=== PATIENT | female | born 1980 | race Asian ===

== ENCOUNTER 2018-07-22 16:37 | Observation (INO) | payer OTHER ==
[~2018-07-22] VITALS: Ht 152.4 cm; Wt 56.0 kg
[~2018-07-22 16:37] MED LIST: DIPHENHYDRAMINE 50 MG/ML, 1ML ONE; ONDANSETRON 2MG/ML, 2ML IVPush PRN
[2018-07-22] MEDS ORDERED: HYDROmorphone 2 MG/ML, 1ML ONE ×3 (17:10→22:20)
[2018-07-22] MEDS ORDERED: HYDROmorphone 1 MG/ML, 1ML IVPush PRN (17:30)
[2018-07-22] MEDS ORDERED: FENTANYL PF 100 MCG/2ML ONE ×2 (19:15→21:35)
[2018-07-22] MEDS ORDERED: MIDAZOLAM 1 MG/ML, 2ML ONE (19:15)
[2018-07-22] MEDS ORDERED: ROPIvacaine/PF 0.5%, 30 ML ONE (19:15)
[2018-07-22] MEDS ORDERED: PROMETHAZINE 25 MG/ML, 1ML IV PRN (19:30)
[2018-07-22] MEDS ORDERED: hydrALAzine 20 MG/ML, 1ML IV PRN (19:30)
[2018-07-22] MEDS ORDERED: MEPERIDINE/PF 25MG/0.5ML IVPush PRN (19:30)
[2018-07-22] MEDS ORDERED: HALOPERIDOL 5 MG/ML IV PRN (19:30)
[2018-07-22] MEDS ORDERED: OXYcodone 5 MG/5 ML ORAL.SOL UDC PO PRN (19:30)
[2018-07-22] MEDS ORDERED: ACETAMINOPHEN 325 MG TABLET PO PRN (19:30)
[2018-07-22] MEDS ORDERED: DEXAMETHASONE 4 MG/ML, 1ML ONE (20:13)
[2018-07-22] MEDS ORDERED: CEFAZOLIN 1,000 MG ONE (20:13)
[2018-07-22] MEDS ORDERED: LIDOCAINE 2% 100MG/5ML SYRINGE ONE (20:13)
[2018-07-22] MEDS ORDERED: PROPOFOL 10 MG/ML, 20ML ONE (20:13)
[2018-07-22] MEDS ORDERED: KETOROLAC 30 MG/1 ML ONE (21:16)
[2018-07-22] MEDS ORDERED: OXYcodone 5 MG/5 ML ORAL.SOL UDC ONE (21:35)
[2018-07-22] MEDS ORDERED: ACETAMINOPHEN 650 MG/20.3 ML UDC ONE (21:35)
[2018-07-22] MEDS: FENTANYL PF 100 MCG/2ML IV PRN ×3 (21:48→22:06)
[2018-07-22] MEDS ORDERED: LABETALOL 5MG/ML, 20ML ONE (21:50)
[2018-07-22] MEDS: LABETALOL 5MG/ML, 20ML IV PRN ×3 (21:54→22:56)
[2018-07-22] MEDS ORDERED: hydrALAzine 20 MG/ML, 1ML ONE (22:07)
[2018-07-22] MEDS: HYDROmorphone 1 MG/ML, 1ML IV PRN ×4 (22:22→22:47)
[2018-07-22] MEDS ORDERED: OXYC-307 PO (23:26)
[2018-07-22] MEDS ORDERED: DOCU-131 PO (23:27)
[2018-07-22] MEDS ORDERED: ONDA4TAB7 PO (23:27)
[2018-07-23] MEDS: MORPHINE SULFATE 4 MG/ML, 1ML IVPush PRN ×2 (02:58→03:28)
[2018-07-23] MEDS: OXYcodone/APAP 5/325MG TABLET PO PRN ×3 (03:29→11:59)
[2018-07-23 04:00] VITALS: BP 134/92
[2018-07-23] MEDS ORDERED: KETOROLAC 30 MG/1 ML IVPush PRN (06:30)
[2018-07-23 07:08] VITALS: BP 124/89
== END 2018-07-23 12:05 | disposition home or self-care (01) ==
LOC: ED 18:15 → EDIP 18:31 → 4NOR 23:13
PROVIDERS: ADMIT Orthopaedic Surgery; ATTEND Orthopaedic Surgery
DX: S52.301A Unspecified fracture of shaft of right radius, initial encounter for closed fracture (principal); S52.201A Unspecified fracture of shaft of right ulna, initial encounter for closed fracture; W19.XXXA Unspecified fall, initial encounter; Y93.89 Activity, other specified; Y92.89 Other specified places as the place of occurrence of the external cause; Y99.8 Other external cause status; Z79.899 Other long term (current) drug therapy
CPT/HCPCS: 25575; 36415; 73090; 76001; 84702; 96374; 96375; 96376; 99285; C1713; G0378; J0360; J0690; J1100; J1170; J1200; J1885; J2250; J2704; J2795; J3010